=== PATIENT | male | born 1995 | race Hispanic/Latino ===

== ENCOUNTER 2018-04-01 11:30 | Emergency (ER) | payer SELFPAY ==
[2018-04-01] MEDS ORDERED: LIDOCAINE 1% MPF 5 ML VIAL ONE (12:38)
--- NOTE | 2018-04-01 12:46 | EDPHYS ---
Physician Documentation [facility] Name: Tang Barajas Age: 23 yrs Sex: Male : 1995 Arrival Date: 04/01/2018 Time: 11:34 Bed 19 Private MD: None, None ED Physician Alonso Espana HPI: 04/01 12:41 This 23 yrs old Male presents to ER via Ambulatory with complaints of knee pain. jr8 12:41 The patient presents with pain, swelling, tenderness. The complaints affect the left jr8 knee. Onset: The symptoms/episode began/occurred gradually, 2 day(s) ago. Modifying factors: The symptoms are alleviated by nothing. the symptoms are aggravated by movement, bending knee. Associated signs and symptoms: The patient has no apparent associated signs or symptoms. Severity of symptoms: At their worst the symptoms were moderate, in the emergency department the symptoms are unchanged. The patient has not experienced similar symptoms in the past. The patient has not recently seen a physician. Stated that he has had purulent discharge and swelling to inferior portion of knee. Redness and pain getting worse . Historical: - Allergies: 11:45 No Known Allergies; sv - Home Meds: 11:45 None [Active]; sv - PMHx: 11:45 None; sv - PSHx: 11:45 Appendectomy; sv - Immunization history:: Adult Immunizations unknown. - Social history:: Smoking status: Patient uses tobacco products, denies chronic smoking, but will smoke occasionally. - Ebola Screening: : No symptoms or risks identified at this time. ROS: 12:41 Eyes: Negative for injury, pain, redness, and discharge, ENT: Negative for injury, jr8 pain, and discharge, Neck: Negative for injury, pain, and swelling, Cardiovascular: Negative for chest pain, palpitations, and edema, Respiratory: Negative for shortness of breath, cough, wheezing, and pleuritic chest pain, Abdomen/GI: Negative for abdominal pain, nausea, vomiting, diarrhea, and constipation, Back: Negative for injury and pain, Skin: Negative for injury, rash, and discoloration, Neuro: Negative for headache, weakness, numbness, tingling, and seizure. 12:41 MS/extremity: Positive for erythema, pain, swelling, tenderness, of the left knee. Exam: 12:41 Cardiovascular: Regular rate and rhythm with a normal S1 and S2. No gallops, murmurs, jr8 or rubs. Normal PMI, no JVD. No pulse deficits. Respiratory: Lungs have equal breath sounds bilaterally, clear to auscultation and percussion. No rales, rhonchi or wheezes noted. No increased work of breathing, no retractions or nasal flaring. Back: No spinal tenderness. No costovertebral tenderness. Full range of motion. MS/ Extremity: Pulses equal, no cyanosis. Neurovascular intact. Full, normal range of motion. Neuro: Awake and alert, GCS 15, oriented to person, place, time, and situation. Cranial nerves II-XII grossly intact. Motor strength 5/5 in all extremities. Sensory grossly intact. Cerebellar exam normal. Normal gait. 12:41 Skin: small abscess noted just distal to tibial tuberosity. Surrounding erythema and induration noted. No swelling to the actual knee itself . Vital Signs: 11:46 BP 104 / 77; Pulse 84; Resp 18; Temp 99(O); Pulse Ox 100% ; Weight 63.05 kg; Height 5 sv ft. 7 in. (170.18 cm); Pain 9/10; 13:00 BP 114 / 76; Pulse 81; Resp 18; Temp 98.9(TE); Pulse Ox 99% ; ph 11:46 Body Mass Index 21.77 (63.05 kg, 170.18 cm) sv Procedures: 12:41 I \T\ D: Incision and drainage was performed for an abscess of the left inferior knee jr8 Prepped with Betadine, Anesthetized with 5 ml's 1% Lidocaine. Incised with #11 blade. Drained small amount purulent fluid. bloody fluid. Loculations removed. Cultures obtained. Abscess cavity explored. Packed with sterile gauze, Dressing: sterile 4x4 gauze, the patient tolerated the procedure well. MDM: 12:23 Patient medically screened. [facility] 12:41 Data reviewed: vital signs, nurses notes, lab test result(s), and as a result, I will [facility] discharge patient. Data interpreted: Pulse oximetry: on room air is 100 %. Interpretation: normal. Counseling: I had a detailed discussion with the patient and/or guardian regarding: the historical points, exam findings, and any diagnostic results supporting the discharge/admit diagnosis, the need for outpatient follow up, a family practitioner, to return to the emergency department if symptoms worsen or persist or if there are any questions or concerns that arise at home. 04/01 12:41 Order name: Wound Culture jr8 Administered Medications: 12:35 Drug: Lidocaine (1 %) 5 mg Route: Infiltration; ph 19:37 Follow up: Response: No adverse reaction ph 13:10 Drug: Bactrim (160 mg-800 mg (DS) 1 tablet Route: PO; ph 13:20 Follow up: Response: No adverse reaction ph Disposition: 14:19 Co-signature as Attending Physician, Alonso Espana MD I agree with the assessment and kdr plan of care. Disposition: 04/01/18 12:45 Discharged to Home. Impression: Cutaneous abscess of left lower limb. - Condition is Stable. - Discharge Instructions: Skin Abscess, Incision and Drainage. - Prescriptions for Ibuprofen 800 mg Oral Tablet - take 1 tablet by ORAL route every 12 hours As needed take with food; 20 tablet. Tylenol- Codeine #3 300-30 mg Oral Tablet - take 2 tablets by ORAL route every 6 hours As needed; 12 tablet. Bactrim DS 800- 160 mg Oral Tablet - take 1 tablet by ORAL route every 12 hours for 10 days; 20 tablet. - Medication Reconciliation Form, Thank You Letter, Antibiotic Education, Prescription Opioid Use, Work release form form. - Follow up: Private Physician; When: 48 Hours; Reason: Wound Recheck, Recheck today's complaints, Continuance of care, Re-evaluation by your physician. - Problem is new. - Symptoms have improved. Signatures: Dispatcher [employer] Dipika Gallardo RN RN Alonso Espana MD MD [facility] Fernando Luna PA PA jr8 Cristy Menendez RN RN ph Corrections: (The following items were deleted from the chart) 13:26 12:45 04/01/2018 12:45 Discharged to Home. Impression: Cutaneous abscess of left lower ph limb. Condition is Stable. Forms are Medication Reconciliation Form, Thank You Letter, Antibiotic Education, Prescription Opioid Use. Follow up: Private Physician; When: 48 Hours; Reason: Wound Recheck, Recheck today's complaints, Continuance of care, Re-evaluation by your physician. Problem is new. Symptoms have improved. jr8
--- NOTE | 2018-04-01 12:46 | ER ---
Nurse's Notes [facility] Name: Tang Barajas Age: 23 yrs Sex: Male : 1995 Arrival Date: 04/01/2018 Time: 11:34 Bed 19 Private MD: None, None Diagnosis: Cutaneous abscess of left lower limb Presentation: 04/01 11:41 Presenting complaint: Patient states: left knee pain, redness and pus coming out since sv Saturday03/29/18. Subjective fever, Tylenol taken yesterday. Started off as a pimple and squeezed it on Saturday. Transition of care: patient was not received from another setting of care. Onset of symptoms was March 29, 2018. Care prior to arrival: None. 11:41 Method Of Arrival: Ambulatory sv 11:41 Acuity: ELIAS 3 sv 11:41 Note returns clerk ID#[id number]. sv 12:30 Risk Assessment: Do you want to hurt yourself or someone else? Patient reports no ph desire to harm self or others. Initial Sepsis Screen: Does the patient meet any 2 criteria? No. Patient's initial sepsis screen is negative. Does the patient have a suspected source of infection? No. Patient's initial sepsis screen is negative. Historical: - Allergies: 11:45 No Known Allergies; sv - Home Meds: 11:45 None [Active]; sv - PMHx: 11:45 None; sv - PSHx: 11:45 Appendectomy; sv - Immunization history:: Adult Immunizations unknown. - Social history:: Smoking status: Patient uses tobacco products, denies chronic smoking, but will smoke occasionally. - Ebola Screening: : No symptoms or risks identified at this time. Screenin:30 Abuse screen: Denies threats or abuse. Denies injuries from another. Nutritional ph screening: No deficits noted. Tuberculosis screening: No symptoms or risk factors identified. Fall Risk None identified. Assessment: 12:30 General: Appears in no apparent distress. uncomfortable, slender, well groomed, ph Behavior is calm, cooperative, appropriate for age, Reports fever for 12-24 hours. Pain: Complains of pain in left knee. Neuro: Level of Consciousness is awake, alert, obeys commands, Oriented to person, place, time, situation. Cardiovascular: Capillary refill < 3 seconds Patient's skin is warm and dry. Respiratory: Airway is patent Respiratory effort is even, unlabored. GI: Reports diarrhea, nausea, vomiting, Patient currently denies abdominal pain. Derm: Skin is healthy with good turgor, Skin is pink, warm \T\ dry. Abscess located on left knee is nickel sized, has purulent drainage, is hot to touch, is red, is raised. Musculoskeletal: Circulation, motion, and sensation intact. Range of motion: intact in all extremities. Vital Signs: 11:46 BP 104 / 77; Pulse 84; Resp 18; Temp 99(O); Pulse Ox 100% ; Weight 63.05 kg; Height 5 sv ft. 7 in. (170.18 cm); Pain 9/10; 13:00 BP 114 / 76; Pulse 81; Resp 18; Temp 98.9(TE); Pulse Ox 99% ; ph 11:46 Body Mass Index 21.77 (63.05 kg, 170.18 cm) sv ED Course: 11:34 Patient arrived in ED. sb2 11:34 None, None is Private Physician. sb2 11:45 Triage completed. sv 11:47 Arm band placed on left wrist. Patient placed in waiting room, Patient notified of wait sv time. 12:23 Fernando Luna PA is PHCP. jr8 12:23 Alonso Espana MD is Attending Physician. jr8 12:30 Patient has correct armband on for positive identification. Bed in low position. Call ph light in reach. Side rails up X 1. 12:49 Cristy Menendez, RN is Primary Nurse. ph 13:00 Assist provider with I \T\ D: of an abscess on left knee Set up I\T\D tray. Performed by earline HOUST[place] Culture sent to lab. Wound packed. iodoform gauze, Dressing with 4X4s, Patient tolerated well. Patient did not have IV access during this emergency room visit. Administered Medications: 12:35 Drug: Lidocaine (1 %) 5 mg Route: Infiltration; ph 19:37 Follow up: Response: No adverse reaction ph 13:10 Drug: Bactrim (160 mg-800 mg (DS) 1 tablet Route: PO; ph 13:20 Follow up: Response: No adverse reaction ph Outcome: 12:45 Discharge ordered by . jr8 13:26 Patient left the ED. ph 13:26 Discharged to home ambulatory. ph 13:26 Condition: good 13:26 Discharge instructions given to patient, Instructed on discharge instructions, follow up and referral plans. medication usage, Demonstrated understanding of instructions, follow-up care, medications, Prescriptions given X 3. Addendum: 04/05/2018 07:28 Addendum: Culture Results: Positive wound culture. No further action required. Bacteria s s sensitive to prescribed antibiotic. Signatures: Dipika Mott RN RN Kaitlin Landon RN RN Fernando Luna PA PA jr8 Cristy Menendez RN RN Codie Craft sb2
[2018-04-01] MEDS ORDERED: SMZ./TMP. 800/160 MG TABLET ONE (13:08)
== END 2018-04-01 13:26 | disposition home or self-care (01) ==
LOC: ER 11:30
PROC: 0J9P0ZZ Drainage of Left Lower Leg Subcutaneous Tissue and Fascia, Open Approach (ICD-10-PCS; principal; 2018-04-01)
DX: L02.416 Cutaneous abscess of left lower limb (principal); Z72.0 Tobacco use
CPT/HCPCS: 87070; 87077; 87186; 87205; 99284

== ENCOUNTER 2018-04-03 12:17 | Emergency (ER) | payer SELFPAY ==
--- NOTE | 2018-04-03 14:04 | EDPHYS ---
Physician Documentation [facility] Name: Tang Barajas Age: 23 yrs Sex: Male : 1995 Arrival Date: 04/03/2018 Time: 12:19 Bed 12 Private MD: ED Physician Alonso Espana HPI: 04/03 14:01 This 23 yrs old Male presents to ER via Ambulatory with complaints of Abscess jr8 Recheck. 14:01 Patient presents to ED for recheck of: abscess. The affected area is on the left knee. jr8 Previous treatment: The patient was initially treated 2 day(s) ago. Progress: The patient reports decreased drainage, pain, redness, swelling. The patient has not experienced similar symptoms in the past. Patient had abscess on knee that was drained two days ago. Came back for wound check . Historical: - Allergies: 12:42 No Known Allergies; aa5 - PMHx: 12:42 None; aa5 - PSHx: 12:42 Appendectomy; aa5 - Immunization history:: Adult Immunizations up to date. - Social history:: Smoking status: Patient uses tobacco products, denies chronic smoking, but will smoke occasionally. - Ebola Screening: : No symptoms or risks identified at this time. ROS: 14:01 Eyes: Negative for injury, pain, redness, and discharge, ENT: Negative for injury, jr8 pain, and discharge, Neck: Negative for injury, pain, and swelling, Cardiovascular: Negative for chest pain, palpitations, and edema, Respiratory: Negative for shortness of breath, cough, wheezing, and pleuritic chest pain, Abdomen/GI: Negative for abdominal pain, nausea, vomiting, diarrhea, and constipation, Back: Negative for injury and pain, MS/Extremity: Negative for injury and deformity, Skin: Negative for injury, rash, and discoloration, Neuro: Negative for headache, weakness, numbness, tingling, and seizure. Exam: 14:01 Cardiovascular: Regular rate and rhythm with a normal S1 and S2. No gallops, murmurs, jr8 or rubs. Normal PMI, no JVD. No pulse deficits. Respiratory: Lungs have equal breath sounds bilaterally, clear to auscultation and percussion. No rales, rhonchi or wheezes noted. No increased work of breathing, no retractions or nasal flaring. MS/ Extremity: Pulses equal, no cyanosis. Neurovascular intact. Full, normal range of motion. Neuro: Awake and alert, GCS 15, oriented to person, place, time, and situation. Cranial nerves II-XII grossly intact. Motor strength 5/5 in all extremities. Sensory grossly intact. Cerebellar exam normal. Normal gait. 14:01 Skin: Wound recheck: Abscess: the wound has improved, decreased discharge, decreased erythema, decreased pain, decreased swelling, the packing is in place. Vital Signs: 12:43 BP 104 / 56; Pulse 54; Resp 16 S; Temp 98.7(TE); Pulse Ox 99% on R/A; Weight 57.61 kg aa5 (R); Height 5 ft. 6 in. (167.64 cm) (R); Pain 0/10; 12:43 Body Mass Index 20.50 (57.61 kg, 167.64 cm) aa5 MDM: 13:39 Patient medically screened. [facility] 14:01 Data reviewed: vital signs, nurses notes, and as a result, I will discharge patient. [facility] Data interpreted: Pulse oximetry: on room air is 99 %. Interpretation: normal. Counseling: I had a detailed discussion with the patient and/or guardian regarding: the historical points, exam findings, and any diagnostic results supporting the discharge/admit diagnosis, the need for outpatient follow up, a family practitioner, to return to the emergency department if symptoms worsen or persist or if there are any questions or concerns that arise at home. Administered Medications: No medications were administered Disposition: 15:34 Co-signature as Attending Physician, Alonso Espana MD I agree with the assessment and kdr plan of care. Disposition: 04/03/18 14:03 Discharged to Home. Impression: Cutaneous abscess of left lower limb. - Condition is Stable. - Discharge Instructions: Skin Abscess, Incision and Drainage. - Work release form, Medication Reconciliation Form, Thank You Letter, Antibiotic Education, Prescription Opioid Use form. - Follow up: Private Physician; When: As needed; Reason: Wound Recheck, Recheck today's complaints, Continuance of care, Re-evaluation by your physician. - Problem is new. - Symptoms have improved. Signatures: Alonso Espana MD MD [facility] Constance Peralta RN RN Diana Cifuentes RN RN aa5 Fernando Luna PA PA jr8 Corrections: (The following items were deleted from the chart) 14:15 14:03 04/03/2018 14:03 Discharged to Home. Impression: Cutaneous abscess of left lower iw limb. Condition is Stable. Forms are Medication Reconciliation Form, Thank You Letter, Antibiotic Education, Prescription Opioid Use. Follow up: Private Physician; When: As needed; Reason: Wound Recheck, Recheck today's complaints, Continuance of care, Re-evaluation by your physician. Problem is new. Symptoms have improved. jr8
--- NOTE | 2018-04-03 14:04 | ER ---
Nurse's Notes [facility] Name: Tang Barajas Age: 23 yrs Sex: Male : 1995 Arrival Date: 04/03/2018 Time: 12:19 Bed 12 Private MD: Diagnosis: Cutaneous abscess of left lower limb Presentation: 04/03 12:40 Presenting complaint: Patient states: "had an I\\T\\D to my left knee on Saturday and I just aa5 need the packing removed". Transition of care: patient was not received from another setting of care. Onset of symptoms was April 03, 2018. Risk Assessment: Do you want to hurt yourself or someone else? Patient reports no desire to harm self or others. Initial Sepsis Screen: Does the patient meet any 2 criteria? No. Patient's initial sepsis screen is negative. Does the patient have a suspected source of infection? No. Patient's initial sepsis screen is negative. Care prior to arrival: None. 12:40 Method Of Arrival: Ambulatory aa5 12:40 Acuity: ELIAS 5 aa5 Triage Assessment: 14:00 General: Appears in no apparent distress. Behavior is calm, cooperative. iw Historical: - Allergies: 12:42 No Known Allergies; aa5 - PMHx: 12:42 None; aa5 - PSHx: 12:42 Appendectomy; aa5 - Immunization history:: Adult Immunizations up to date. - Social history:: Smoking status: Patient uses tobacco products, denies chronic smoking, but will smoke occasionally. - Ebola Screening: : No symptoms or risks identified at this time. Screenin:00 Abuse screen: Denies threats or abuse. Nutritional screening: No deficits noted. aa5 Tuberculosis screening: No symptoms or risk factors identified. Fall Risk None identified. Assessment: 14:00 General: Appears comfortable, Behavior is calm, cooperative. Pain: Denies pain. Neuro: aa5 Level of Consciousness is awake, alert, obeys commands, Oriented to person, place, time, situation. Cardiovascular: Heart tones S1 S2 present Rhythm is regular. Respiratory: Airway is patent Respiratory effort is even, unlabored, Respiratory pattern is regular, symmetrical. GI: No signs and/or symptoms were reported involving the gastrointestinal system. : No signs and/or symptoms were reported regarding the genitourinary system. EENT: No signs and/or symptoms were reported regarding the EENT system. Derm: Skin is pink, warm \\T\\ dry. Musculoskeletal: Range of motion: intact in all extremities. 14:05 Reassessment: Packing to left knee removed by ROSEMARIE. Cleaned with saline and dressed with aa5 neosposin, gauze, kerlix and tape per PA VO. . Vital Signs: 12:43 BP 104 / 56; Pulse 54; Resp 16 S; Temp 98.7(TE); Pulse Ox 99% on R/A; Weight 57.61 kg aa5 (R); Height 5 ft. 6 in. (167.64 cm) (R); Pain 0/10; 12:43 Body Mass Index 20.50 (57.61 kg, 167.64 cm) aa5 ED Course: 12:19 Patient arrived in ED. mr 12:40 Arm band placed on. aa5 12:40 Patient has correct armband on for positive identification. aa5 12:42 Triage completed. aa5 13:25 Constance Peralta, CHUY is Primary Nurse. iw 13:29 Fernando Luna [facility]. jr8 13:29 Alonso Espana MD is Attending Physician. jr8 14:14 Patient did not have IV access during this emergency room visit. aa5 14:14 No provider procedures requiring assistance completed. aa5 Administered Medications: No medications were administered Outcome: 14:03 Discharge ordered by . jr8 14:14 Discharged to home ambulatory. aa5 14:14 Condition: stable 14:14 Discharge instructions given to patient, significant other, Instructed on discharge instructions, follow up and referral plans. Demonstrated understanding of instructions, follow-up care, Pt instructed to continue taking antibiotics prescribed previously. 14:15 Patient left the ED. iw Signatures: Yeni Goldberg mr Constance Peralta, RN CHUY iw Diana Cifuentes RN RN aa5 Fernando Luna PA PA jrPelon
== END 2018-04-03 14:15 | disposition home or self-care (01) ==
LOC: ER 12:17
DX: L02.416 Cutaneous abscess of left lower limb (principal); Z72.0 Tobacco use
CPT/HCPCS: 99281

== ENCOUNTER 2021-02-04 12:00 | Emergency (ER) | payer SELFPAY ==
[2021-02-04] MEDS ORDERED: ONDANSETRON 4 MG/2 ML VIAL ONE (13:48)
[2021-02-04] MEDS ORDERED: MORPHINE 2 MG/ML SYR ONE (13:48)
[2021-02-04] MEDS ORDERED: NA CHLORIDE 0.9% 1,000 ML ONE (13:48)
[2021-02-04 13:59] LABS: Basophils % 0.8 % (0-1.3); Hematocrit 42.1 % (39.6-49.0); Lymphocytes % 32.8 % (15.3-44.8); MPV 10.3 fL (7.6-11.3); Protime INR 1.07; RBC Red Blood Cell Count 4.67 M/uL (4.33-5.43)
[2021-02-04 14:16] LABS: ALT/SGPT 24 U/L (12-78); AST/SGOT 16 U/L (15-37); Albumin 3.9 g/dL (3.4-5.0); Alkaline Phosphatase 55 U/L (45-117); BUN Blood Urea Nitrogen 13 mg/dL (7-18); Bicarbonate 30 mmol/L (21-32); Bilirubin Direct 0.2 mg/dL (0-0.2); Bilirubin Total 0.6 mg/dL (0.2-1.0); Glucose Level 59 mg/dL (74-106); Lipase 83 U/L (73-393); Magnesium 2.3 mg/dL (1.8-2.4); NT PRO-BNP 15 pg/mL (<125); Potassium 3.7 mmol/L (3.5-5.1); Protein, Total 7.3 g/dL (6.4-8.2); Sodium Level 144 mmol/L (136-145); Troponin (Emerg Dept Use Only) < 0.02 ng/mL (0.0-0.045)
--- NOTE | 2021-02-04 14:17 | RAD REPORT ---
EXAM DESCRIPTION: Tiffany Single View02/04/2021 2:08 pm CLINICAL HISTORY: Chest pain COMPARISON: none FINDINGS: The lungs appear clear of acute infiltrate. The heart is normal size IMPRESSION: No acute abnormalities displayed
--- NOTE | 2021-02-04 16:05 | RAD REPORT ---
EXAM DESCRIPTION: CT - Abdomen Pelvis W Contrast - 02/04/2021 3:42 pm CLINICAL HISTORY: Abdominal pain COMPARISON: none. TECHNIQUE: Computed axial tomography of the abdomen pelvis was obtained. 100 cc Isovue-300 was admin istered intravenously. Oral contrast was not requested which limits evaluation of bowel. All CT scans are performed using dose optimization technique as appropriate and may include automated exposure control or mA/KV adjustment according to patient size. FINDINGS: The liver, spleen, pancreas, adrenal and kidneys appear unremarkable. There is no evidence of diverticulitis. Fluid is present within nondilated small bowel IMPRESSION: Fluid is present within nondilated small bowel which may indicate an enteritis
--- NOTE | 2021-02-04 16:39 | EDPHYS ---
Physician Documentation [facility] Name: Tang Barajas Age: 26 yrs Sex: Male : 1995 Arrival Date: 02/04/2021 Time: 12:04 Bed 15 Private MD: ROSY Physician Jordan Ramos HPI: 02/04 13:16 This 26 yrs old Male presents to ER via Ambulatory with complaints of [facility] Abdominal Pain, Shortness Of Breath. 13:16 The patient presents with abdominal pain. Onset: The symptoms/episode began/occurred jmm gradually, 1 month(s) ago. The symptoms do not radiate. Associated signs and symptoms: Pertinent negatives: diarrhea, vomiting. The symptoms are described as achy. 26-year-old male no chronic medical conditions presents emerged part with complaints of ongoing chest pain, shortness of breath, abdominal pain. 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 Patient states the abdominal pain is mainly epigastric. Denies vomiting or diarrhea. Patient also states his sense of smell has changed.. Historical: - Allergies: 12:48 No Known Allergies; kg - Home Meds: 12:48 None [Active]; kg - PSHx: 12:48 Appendectomy; kg - Immunization history:: Adult Immunizations not up to date, Client reports having NOT received the Covid vaccine. - Social history:: Smoking status: Patient reports the use of cigarette tobacco products, smokes one-half pack cigarettes per day, Patient uses alcohol, on a daily basis. ROS: 13:16 Constitutional: Negative for fever, chills, and weight loss. jmm 13:16 Cardiovascular: Negative for chest pain, palpitations, and edema, Respiratory: Negative for shortness of breath, cough, wheezing, and pleuritic chest pain, Abdomen/GI: Negative for abdominal pain, nausea, vomiting, diarrhea, and constipation, Back: Negative for injury and pain, Skin: Negative for injury, rash, and discoloration, Neuro: Negative for headache, weakness, numbness, tingling, and seizure, Psych: Negative for depression, anxiety, suicide ideation, homicidal ideation, and hallucinations. 13:16 Cardiovascular: Positive for chest pain. 13:16 Respiratory: Positive for shortness of breath. 13:16 Abdomen/GI: Positive for abdominal pain. Exam: 16:36 Constitutional: This is a well developed, well nourished patient who is awake, alert, jmm and in no acute distress. Head/Face: atraumatic. Eyes: EOMI, no conjunctival erythema appreciated ENT: Moist Mucus Membranes Neck: Trachea midline, Supple Chest/axilla: Normal chest wall appearance and motion. Cardiovascular: Regular rate and rhythm. No edema appreciated Respiratory: Normal respirations, no respiratory distress appreciated 16:36 Back: Normal ROM Skin: General appearance color normal MS/ Extremity: Moves all extremities, no obvious deformities appreciated, no edema noted to the lower extremities Neuro: Awake and alert, normal gait Psych: Behavior is normal, Mood is normal, Patient is cooperative and pleasant 16:36 Abdomen/GI: Inspection: abdomen appears normal, Bowel sounds: normal, Palpation: soft, mild abdominal tenderness, in the right upper quadrant and left upper quadrant. Vital Signs: 12:41 BP 99 / 52; Pulse 45; Resp 20; Temp 97.7; Pulse Ox 100% on R/A; Weight 65.77 kg (M); kg Height 5 ft. 6 in. (167.64 cm) (R); Pain 8/10; 16:01 BP 107 / 66; Pulse 48; Resp 16; Pulse Ox 99% on R/A; iw 12:41 Body Mass Index 23.40 (65.77 kg, 167.64 cm) kg MDM: 13:04 Patient medically screened. [facility] 16:37 Data reviewed: vital signs, nurses notes. Counseling: I had a detailed discussion with [facility] the patient and/or guardian regarding: the historical points, exam findings, and any diagnostic results supporting the discharge/admit diagnosis, lab results, radiology results, the need for outpatient follow up, to return to the emergency department if symptoms worsen or persist or if there are any questions or concerns that arise at home. ED course: And nontoxic in appearance in the ED. Ridging studies reveal an enteritis type pattern on the CT. Patient is negative for pulmonary embolism. I do not suspect acute myocardial infarction. Patient is advised to follow-up with ENT for further evaluation. Family understood and agrees with plan of care.. 02/04 13:14 Order name: Basic Metabolic Panel [facility] 02/04 13:14 Order name: CBC with Diff; Complete Time: 14:10 [facility] 02/04 13:14 Order name: LFT's; Complete Time: 14:20 [facility] 02/04 13:14 Order name: Magnesium; Complete Time: 14:20 [facility] 02/04 13:14 Order name: NT PRO-BNP; Complete Time: 14:20 [facility] 02/04 13:14 Order name: PT-INR; Complete Time: 15:02 [facility] 02/04 13:14 Order name: Troponin (emerg Dept Use Only); Complete Time: 14:20 [facility] 02/04 13:14 Order name: Lipase; Complete Time: 14:20 [facility] 02/04 13:15 Order name: Basic Metabolic Panel; Complete Time: 14:20 [facility] 02/04 13:49 Order name: COVID-19 : Document "Date of Symptom Onset" if Symptomatic. [facility] 02/04 14:29 Order name: D-Dimer; Complete Time: 15:02 [facility] 02/04 15:32 Order name: SARS-COV-2 RT PCR; Complete Time: 16:07 [facility] 02/04 13:14 Order name: XRAY Chest (1 view); Complete Time: 14:20 [facility] 02/04 13:14 Order name: EKG; Complete Time: 13:15 [facility] 02/04 13:14 Order name: Cardiac monitoring; Complete Time: 13:46 [facility] 02/04 13:14 Order name: EKG - Nurse/Tech; Complete Time: 13:46 [facility] 02/04 13:14 Order name: IV Saline Lock; Complete Time: 13:46 [facility] 02/04 13:14 Order name: Labs collected and sent; Complete Time: 13:46 [facility] 02/04 13:14 Order name: O2 Per Protocol; Complete Time: 13:58 [facility] 02/04 13:14 Order name: O2 Sat Monitoring; Complete Time: 13:58 [facility] 02/04 15:02 Order name: CT Abd/Pelvis - IV Contrast Only; Complete Time: 16:07 [facility] Administered Medications: 13:54 Drug: NS 0.9% 1000 ml Route: IV; Rate: 1 bolus; Site: right antecubital; iw 16:00 Follow up: IV Status: Completed infusion iw 13:55 Drug: morphine 2 mg Route: IVP; Site: right antecubital; iw 14:30 Follow up: Response: No adverse reaction iw 13:55 Drug: Zofran (Ondansetron) 4 mg Route: IVP; Site: right antecubital; iw 14:50 Follow up: Response: No adverse reaction iw Disposition: 02/05 06:59 Co-signature as Attending Physician, Jordan Ramos MD I agree with the assessment and [facility] plan of care. Disposition Summary: 02/04/21 16:39 Discharge Ordered Location: Home jm Condition: Stable jmm Diagnosis - Abdominal pain, unspecified jmm - Diarrhea, unspecified jmm Followup: jmm - With: Aby Anderson MD - When: 2 - 3 days - Reason: Recheck today's complaints, Continuance of care, Re-evaluation by your physician Discharge Instructions: - Discharge Summary Sheet jmm - Abdominal Pain, Adult jmm - Food Choices to Help Relieve Diarrhea, Adult jmm Forms: - Medication Reconciliation Form jmm - Thank You Letter jmm - Antibiotic Education jmm - Prescription Opioid Use jmm - Work release form eb Prescriptions: - ondansetron 4 mg Oral tablet,disintegrating - take 1 tablet by ORAL route every 4-6 hours; 20 tablet; Refills: 0, Product jmm Selection Permitted - dicyclomine 20 mg Oral Tablet - take 1 tablet by ORAL route 4 times per day; 20 tablet; Refills: 0, Product jmm Selection Permitted Signatures: Dispatcher [employer] Jordan Gilmore MD MD cha Mickail, Joel, PA PA jmm Williams, Irene, RN RN Ana Soto, CHUY RN kg Corrections: (The following items were deleted from the chart) 02/04 14:27 13:50 CORONAVIRUS ordered. EDMS EDMS 14:29 14:21 D-DIMER+COAG.LAB.BRZ ordered. EDMS EDMS
--- NOTE | 2021-02-04 16:39 | ER ---
Nurse's Notes [facility] Name: Tang Barajas Age: 26 yrs Sex: Male : 1995 Arrival Date: 02/04/2021 Time: 12:04 Bed 15 Private MD: Diagnosis: Abdominal pain, unspecified;Diarrhea, unspecified Presentation: 02/04 12:41 Chief complaint: Patient states: Abdominal pain, right sided chest pain, throat pain kg starting this morning. Pt stated, "When I swallow or eat it taste a naste taste and makes my stomach hurt." Pt lost taste and smell one month ago. Coronavirus screen: Client denies travel out of the [place] in the last 14 days. At this time, unable to obtain information related to travel outside the [place] Client presents with at least one sign or symptom that may indicate coronavirus-19. Standard/surgical mask placed on the client. Provider contacted for isolation considerations. Ebola Screen: Patient negative for fever greater than or equal to 101.5 degrees Fahrenheit, and additional compatible Ebola Virus Disease symptoms Patient denies exposure to infectious person. Patient denies travel to an Ebola-affected area in the 21 days before illness onset. No symptoms or risks identified at this time. Initial Sepsis Screen: Does the patient meet any 2 criteria? No. Patient's initial sepsis screen is negative. Does the patient have a suspected source of infection? No. Patient's initial sepsis screen is negative. Risk Assessment: Do you want to hurt yourself or someone else? Patient reports no desire to harm self or others. Onset of symptoms was February 03, 2021. 12:41 Method Of Arrival: Ambulatory kg 12:41 Acuity: ELIAS 3 kg Triage Assessment: 12:45 General: Appears in no apparent distress. Behavior is calm, cooperative, appropriate kg for age, quiet. Pain: Complains of pain in abdomen Pain radiates to right breast, throat Pain currently is 8 out of 10 on a pain scale. at worst was 10 out of 10 on a pain scale. level that patient reports is acceptable is 5 out of 10 on a pain scale. Historical: - Allergies: 12:48 No Known Allergies; kg - Home Meds: 12:48 None [Active]; kg - PSHx: 12:48 Appendectomy; kg - Immunization history:: Adult Immunizations not up to date, Client reports having NOT received the Covid vaccine. - Social history:: Smoking status: Patient reports the use of cigarette tobacco products, smokes one-half pack cigarettes per day, Patient uses alcohol, on a daily basis. Screenin:45 Abuse screen: Denies threats or abuse. Denies injuries from another. Nutritional kg screening: No deficits noted. Tuberculosis screening: No symptoms or risk factors identified. Fall Risk None identified. No fall in past 12 months (0 pts). No secondary diagnosis (0 pts). IV access (20 points). Ambulatory Aid- None/Bed Rest/Nurse Assist (0 pts). Gait- Normal/Bed Rest/Wheelchair (0 pts) Mental Status- Oriented to own ability (0 pts). Total Sotomayor Fall Scale indicates No Risk (0-24 pts). 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 . 13:59 General: Appears in no apparent distress. Behavior is calm, cooperative. Pain: iw Complains of pain in chest and abdomen. Neuro: Level of Consciousness is awake, alert, obeys commands, Moves all extremities. Full function. Cardiovascular: Patient's skin is warm and dry. Respiratory: Respiratory effort is even, unlabored. GI: Bowel sounds present X 4 quads. Vital Signs: 12:41 BP 99 / 52; Pulse 45; Resp 20; Temp 97.7; Pulse Ox 100% on R/A; Weight 65.77 kg (M); kg Height 5 ft. 6 in. (167.64 cm) (R); Pain 8/10; 16:01 BP 107 / 66; Pulse 48; Resp 16; Pulse Ox 99% on R/A; iw 12:41 Body Mass Index 23.40 (65.77 kg, 167.64 cm) kg ED Course: 12:04 Patient arrived in ED. cl3 12:45 Triage completed. kg 12:45 Patient has correct armband on for positive identification. kg 12:45 Arm band placed on. kg 12:50 Constance Peralta, RN is Primary Nurse. iw 12:52 Ted Murry PA is PHCP. [facility] 12:52 Jordan Ramos MD is Attending Physician. jmm 13:46 Basic Metabolic Panel Sent. 5 13:46 Basic Metabolic Panel Sent. mh5 13:46 XRAY Chest (1 view) Sent. mh5 13:46 Lipase Sent. 5 13:46 CBC with Diff Sent. 5 13:47 LFT's Sent. 5 13:47 Magnesium Sent. 5 13:47 NT PRO-BNP Sent. mh5 13:47 PT-INR Sent. 5 13:47 Troponin (emerg Dept Use Only) Sent. 5 13:57 Basic Metabolic Panel Sent. 5 13:57 Lipase Sent. 5 13:57 CBC with Diff Sent. 5 13:57 LFT's Sent. 5 13:57 Magnesium Sent. 5 13:57 NT PRO-BNP Sent. 5 13:57 PT-INR Sent. 5 13:57 Troponin (emerg Dept Use Only) Sent. [facility] 13:58 COVID-19 : Document "Date of Symptom Onset" if Symptomatic. Sent. [facility] 13:58 Initial lab(s) drawn, by ma, sent to lab. COVID swab sent to lab. Inserted saline lock: [facility] 20 gauge in right antecubital area, using aseptic technique. Blood collected. 13:59 Patient has correct armband on for positive identification. Bed in low position. Call [facility] light in reach. Side rails up X 1. Pillow given. upfitter on. Pulse ox on. NIBP on. 14:08 XRAY Chest (1 view) In Process Unspecified. EDMS 15:42 CT Abd/Pelvis - IV Contrast Only In Process Unspecified. EDMS 16:38 Aby Anderson MD is Referral Physician. m 16:52 IV discontinued, Pressure dressing applied. [facility] Administered Medications: 13:54 Drug: NS 0.9% 1000 ml Route: IV; Rate: 1 bolus; Site: right antecubital; iw 16:00 Follow up: IV Status: Completed infusion iw 13:55 Drug: morphine 2 mg Route: IVP; Site: right antecubital; iw 14:30 Follow up: Response: No adverse reaction iw 13:55 Drug: Zofran (Ondansetron) 4 mg Route: IVP; Site: right antecubital; iw 14:50 Follow up: Response: No adverse reaction Outcome: 16:39 Discharge ordered by . jmm 17:31 Patient left the ED. [facility] Signatures: Dispatcher [employer] EDMS Ted Murry PA PA jmm Williams, Irene, RN RN iw Martinez, Maria [facility] Juliette Grullon 3 Ana Lemus RN RN kg Corrections: (The following items were deleted from the chart) 14:27 13:58 CORONAVIRUS drawn and sent. [facility] EDSD
[2021-02-04 17:42] VITALS: TEMP 97.7
[2021-02-04 17:44] VITALS: BP 107/66; O2SAT 99
== END 2021-02-04 17:31 | disposition home or self-care (01) ==
LOC: ER 12:00
DX: R19.7 Diarrhea, unspecified (principal); Z20.822 Contact with and (suspected) exposure to COVID-19; F17.210 Nicotine dependence, cigarettes, uncomplicated
CPT/HCPCS: 36415; 71045; 74177; 80048; 80076; 83690; 83735; 83880; 84484; 85025; 85379; 85610; 93005; 96361; 96374; 96375; 99284; J2270; J2405; J7030; Q9967; U0003